=== PATIENT | female | born 1975 | race African-American/Black ===

== ENCOUNTER 2018-01-17 13:42 | Inpatient (IN) | payer OTHER ==
[2018-01-17 14:51] VITALS: BMI 22.6
--- NOTE | 2018-01-17 17:31 | HP ---
"Admission ROS [facility] Chief Complaint: My alcohol was discontinued and I am here for rehab. Allergies/Adverse Reactions: Allergies Allergy/AdvReac Type Severity Reaction Status Date / Time No Known Allergies Allergy Verified 01/17/18 15:29 History of Present Illness: Hx alcohol use since age 39. Detoxed during hospitalization at [facility]. Denies other substances. States was detoxed in [facility] in September but only remained sober for 2-3 days. Sent from [facility] ([facility]) to [facility] for rehab. Patient was admitted post seizures and treated for alcohol withdrawal symptoms w/ Librium, thiamine, folate, and MVI at [facility] from 01/13 to 01/17/15. Patient was also treated w/ 5 day course of antibiotics while hospitalized for possible pneumonia. Discharge diagnoses: Increased LDH (R74.0); Hypokalemia (E87.6) Other pancytopenia ( D61.818); Nonspecific abnormal finding of lung field (R91.8) alcohol abuse and withdrawal. Verbal report from USHA Sosa indicates that except for vitamins , no other medications needed at discharge. Denies significant PMH/PSH. Search Terms: Yvette Bone, 1975 Search Date: 01/17/2018 06:12:36 PM The Drug Utilization Report below displays all of the controlled substance prescriptions, if any, that your patient has filled in the last twelve months. The information displayed on this report is compiled from pharmacy submissions to the Department, and accurately reflects the information as submitted by the pharmacies. This report was requested by: Jaimie Person | Reference #: [id number] There are no results for the search terms that you entered. Exam Limitations: No Limitations - Ebola screening Have you traveled outside of the country in the last 21 days: No Have you had contact with anyone from an Ebola affected area: No Have you been sick,other than usual withdrawal symptoms: No - Review of Systems Constitutional: Changes in sleep (Difficulty falling asleep and staying asleep.) EENT: reports: No Symptoms Reported Respiratory: reports: No Symptoms reported, Other (Had SOB and weakness but reslved now.) Cardiac: reports: No Symptoms Reported GI: reports: No Symptoms Reported : reports: No Symptoms Reported Musculoskeletal: reports: No Symptoms Reported Integumentary: reports: Dryness (Dry, itchy skin.) Neuro: reports: No Symptoms reported, Seizure (Last seizure 01/12/18 - then sent to ER) Endocrine: reports: No Symptoms Reported Hematology: reports: No Symptoms Reported Psychiatric: reports: Judgement Intact, Orientated x3, Agitated, Anxious, Depressed (Denies thoughts of harming self and others.) Patient History - Patient Medical History Hx Asthma: No Hx Chronic Obstructive Pulmonary Disease (COPD): No Hx Cardiac Disorders: No Hx Hypertension: Yes Hx Seizures: Yes (LAST SEIZURE WAS ON 01/14/2018) Hx Diabetes: No Hx Gastrointestinal Disorders: No Hx Genitourinary Disorders: No Hx Sexually Transmitted Disorders: No (Denies) Hx Renal Disease (ESRD): No Hx Human Immunodeficiency Virus (HIV): No (Negative - 2017) Hx Hepatitis C: No (Hep C AB negative 01/15/18 ) Hx Depression: Yes (Denies thoughts of harming self or others) Hx Suicide Attempt: No Hx Schizophrenia: No - Patient Surgical History Past Surgical History: No Hx Neurologic Surgery: No Hx Cataract Extraction: No Hx Cardiac Surgery: No Hx Lung Surgery: No Hx Breast Surgery: No Hx Breast Biopsy: No Hx Abdominal Surgery: No Hx Appendectomy: No Hx Cholecystectomy: No Hx Genitourinary Surgery: No Hx Section: No Hx Orthopedic Surgery: No Anesthesia Reaction: No - PPD History Previous Implant?: Yes Documented Results: Negative w/o proof Implanted On Prior [facility] Admission?: No PPD to be Administered?: Yes - Reproductive History Patient : No (Urine HCG U negative 12/2617 @ [facility]) - Smoking Cessation Smoking history: Former smoker Have you smoked in the past 12 months: No Cigars Per Day: 0 Hx Chewing Tobacco Use: No Initiated information on smoking cessation: No - Substance & Tx. History Hx Alcohol Use: Yes Hx Substance Use: Yes Substance Use Type: Alcohol Hx Substance Use Treatment: Yes ([facility] detox) - Substances Abused Alcohol Route: Oral Frequency: Daily Amount used: 1 PINT OF VODKA AND 1-3 25 OZ CANS OF BEER Age of first use: 39 Date of Last Use: 01/12/18 Admission Physical Exam [facility] - Vital Signs Vital Signs: Vital Signs - 24 hr 01/17/18 14:48 Temperature 98.4 F Pulse Rate 70 Respiratory 18 Rate Blood Pressure 137/90 - Physical General Appearance: Yes: Nourished, Appropriately Dressed, Tremorous, Anxious HEENTM: Yes: Hearing grossly Normal, JEFFERY, Other (Speech is slow and hesitant. Bilateral nystagmus on lateral gaze.) Respiratory: Yes: Chest Non-Tender, Lungs Clear, Normal Breath Sounds, No Respiratory Distress Neck: Yes: No masses,lesions,Nodules, Supple Breast: Yes: Breast Exam Deferred Cardiology: Yes: Regular Rhythm, Regular Rate, S1, S2 Abdominal: Yes: Normal Bowel Sounds, Non Tender, Soft, Protuberent (Abd girth = 37.5 inches at umbilicus.) Genitourinary: Yes: Within Normal Limits Back: Yes: Normal Inspection Musculoskeletal: Yes: full range of Motion, Gait Steady Extremities: Yes: Normal Capillary Refill, Normal Range of Motion, Non-Tender, Tremors (mild tremors noted on arms extended) Neurological: Yes: Fully Oriented, Alert, Motor Strength 5/5, Normal Mood/Affect , Normal Response, Other (Bilateral nystagmus on lateral gaze.) Integumentary: Yes: Normal Color, Dry (Dry skin with decreased skin turgor.), Warm Lymphatic: Yes: Within Normal Limits - Diagnostic (1) Alcohol dependence in remission Current Visit: Yes Status: Acute (2) Nystagmus Current Visit: Yes Status: Acute (3) Dry skin Current Visit: Yes Status: Chronic Cleared for Admission [facility] - Detox or Rehab Claeared for Rehab Admission: Yes [facility] Breath Alcohol Content Breath Alcohol Content: 0 Urine Pregancy Test - Result Urine Test Results: Negative- NO Line Present Urine Drug Screen - Results Drug Screen Negative: No Urine Drug Screen Results: BZO-Benzodiazepines Inpatient Rehab Admission - Initial Determination Are CD services needed?: Yes Free of communicable disease: Yes Not in need of hospitalization: Yes - Rehab Admission Criteria Previous failed treatment: Yes Poor recovery environment: Yes Comorbidities: Yes Lacks judgement: No Patient is meeting Inpatient Rehab admission criteria:: Yes"
[2018-01-17] MEDS ORDERED: LOPERAMIDE HCL 2 MG CAPSULE PO PRN (18:13)
[2018-01-17] MEDS ORDERED: guaiFENesin/D-METHORPHAN HB 10 ML UNIT-DOSE CUPS PO PRN (18:13)
[2018-01-17] MEDS ORDERED: MAGNESIUM HYDROX 2400MG/30ML ORAL SUSPENSION 30 ML CUP PO PRN (18:13)
[2018-01-17] MEDS ORDERED: IBUPROFEN 400 MG TABLET (FP) PO PRN (18:13)
[2018-01-17] MEDS ORDERED: MAG HYDROX/AL HYDROX/SIMETH 30 ML UNIT-DOSE CUP PO PRN (18:13)
[2018-01-17] MEDS ORDERED: MENTHOL/PHENOL 1 EACH UD MM PRN (18:13)
[2018-01-17] MEDS ORDERED: P-EPHED 60MG/TRIPROLIDI 2.5MG TABLET PO PRN (18:13)
[2018-01-17] MEDS ORDERED: MAGNESIUM CITRATE 300 ML BOTTLE PO PRN (18:13)
[2018-01-17] MEDS ORDERED: ACETAMINOPHEN 325 MG TABLET (FP) PO PRN (18:13)
[2018-01-17] MEDS ORDERED: COLLOIDAL OATMEAL 1 BAR EACH TP PRN (18:15)
[2018-01-17] MEDS ORDERED: TUBERCULIN PPD 5 TU/0.1ML VIAL ID ONE (20:37)
[2018-01-17] MEDS: THIAMINE HCL 100 MG TABLET (FP) PO SCH (21:25)
[2018-01-17] MEDS: hydrOXYzine PAMOATE 50 MG CAPSULE (FP) PO PRN (21:25)
[2018-01-17] MEDS ORDERED: MELATONIN 5 MG TABLETS PO PRN (22:00)
[2018-01-17 22:16] LABS: URINE APPEARANCE CLEAR; URINE BILIRUBIN NEGATIVE (<2.0 mg/dL); URINE COLOR LTYELLOW; URINE GLUCOSE (UA) NEGATIVE (NEGATIVE); URINE KETONE NEGATIVE (NEGATIVE); URINE NITRITE NEGATIVE (NEGATIVE); URINE PROTEIN NEGATIVE (NEGATIVE); URINE UROBILINOGEN NEGATIVE mg/dL (0.2-1.0)
[2018-01-17 22:21] LABS: URINE LEUK ESTERASE 1+ (NEGATIVE)
[2018-01-17 22:41] LABS: EPI CELLS FEW /HPF (FEW); URINE BACTERIA RARE /hpf (NONE SEEN)
[2018-01-18] MEDS: PRENATAL VITAMINS W/ FOLIC ACID TABLET (FP) PO SCH (09:31)
[2018-01-18] MEDS: hydrOXYzine PAMOATE 50 MG CAPSULE (FP) PO PRN ×2 (10:54→19:42)
--- NOTE | 2018-01-18 11:21 | HP ---
Psychiatrist Admission - Data Date of interview: 01/18/18 Admission source: [facility] Identifying data: First admission to [address] for this 42 y/o AA female seeking rehabilitation treatment for alcohol dependence.No prior contact with [facility].Patient is single,a mother of four,domiciled,unemployed and supported on food stamps. Medical History: Patient endorses good general health.According to records, the patient was hospitalized at [facility] (01/13 - 01/17/18) for seizures + alcohol withdrawal. Treated for pneumonia as well.Discharged on and referred to [facility] for rehabilitation.NO indication of utilization of antipsychotic medications during retention at [facility]. Ms Bone has consistently denied prior exposure to psychotropic medications.Current labs are remarkable for hyperammonemia (77.09) and elevated transaminase AST = 72 ( range 15 - 37). Psychiatric History: Patient denies history of psychiatric hospitalizations or suicide attempts.Ms Bone reports transient episodes of dysphoria, usually after alcohol use but she denies previous exposure to psychotropic medications.No contact with outpatient psychiatric care providers. Physical/Sexual Abuse/Trauma History: Patient denies. Additional Comment: Discussed with the patient in this session.Ms Bone aknowledges consuming 1-2 pints of vodka + beer (3 x 25 ounces) on a daily basis for past three years. See details in current [facility] report : Smoking history : Former smoker. Have you smoked in the past 12 months: No. Cigars Per Day: 0. Hx Chewing Tobacco Use: No. Initiated information on smoking cessation: No. - Substance & Tx. History. Hx Alcohol Use: Yes. Hx Substance Use: Yes. Substance Use Type: Alcohol. Hx Substance Use Treatment: Yes ([facility] detox). - Substances Abused. Alcohol. Route: Oral. Frequency: Daily. Amount used: 1 PINT OF VODKA AND 1-3 25 OZ CANS OF BEER. Age of first use: 39. Date of Last Use: 01/12/18. Urine Drug Screen Results: BZO- Benzodiazepines.Noted on admission. Vital Signs: Vital Signs - 24 hr 01/17/18 01/18/18 01/18/18 14:48 00:30 03:30 Temperature 98.4 F Pulse Rate 70 Respiratory 18 17 18 Rate Blood Pressure 137/90 01/18/18 07:26 Temperature 97.7 F Pulse Rate 76 Respiratory 18 Rate Blood Pressure 128/82 Allergies/Adverse Reactions: Allergies Allergy/AdvReac Type Severity Reaction Status Date / Time No Known Allergies Allergy Verified 01/17/18 15:29 - Substance Abuse/Tx History Hx Alcohol Use: Yes (1-2 pints daily since 2014) Hx Substance Use: Yes (alcohol) Substance Use Type: Alcohol Hx Substance Use Treatment: Yes Mental Status Exam - Mental Status Exam Alert and Oriented to: Time, Place, Person Cognitive Function: Good Patient Appearance: Well Groomed Mood: Nervous, Hopeful Affect: Mood Congruent Patient Behavior: Fatigued, Cooperative Speech Pattern: Clear, Appropriate Voice Loudness: Normal Thought Process: Intact, Goal Oriented Thought Disorder: Not Present Hallucinations: Denies Suicidal Ideation: Denies Homicidal Ideation: Denies Insight/Judgement: Fair Sleep: Poorly, Difficulty falling asleep (wants benadryl) Appetite: Good Muscle strength/Tone: Normal Gait/Station: Normal Psychiatric Findings - Problem List ([place] 1, 2,3) (1) Alcohol dependence in remission Current Visit: Yes Status: Acute (2) Insomnia Current Visit: Yes Status: Acute - Initial Treatment Plan Initial Treatment Plan: Psychoeducation.Principles of sleep hygiene discussed in session.Support.Patient is encouraged to participate in daily groups + scheduled activities occurring on the unit.Psychiatric re-assessment will follow , during hospital course, to screen for depression and determine necessity for antidepressant medications.Insomnia is addressed with benadryl 50 mg po hs prn ( at patient's request).Ms Bone is in agreement with this plan of care.Observation.
[2018-01-18 11:35] LABS: HEMATOCRIT 34.8 % (32.4-45.2); HEMOGLOBIN 11.1 GM/dL (10.7-15.3); MCH 26.6 pg (25.7-33.7); MCHC 31.8 g/dl (32.0-36.0); MEAN CELL VOLUME 83.7 fl (80-96); MEAN PLT VOLUME 9.5 fl (7.5-11.1); PLATELET COUNT 133 K/MM3 (134-434); RBC 4.16 M/mm3 (3.60-5.2); RDW 20.6 % (11.6-15.6); WHITE BLOOD COUNT 3.6 K/mm3 (4.0-10.0)
[2018-01-18 11:45] LABS: ALBUMIN 3.9 g/dl (3.4-5.0); ALK PHOS 94 U/L (45-117); ANION GAP 9 MMOL/L (8-16); BILIRUBIN,TOTAL 0.4 mg/dL (0.2-1); BLOOD UREA NITROGEN 8 mg/dL (7-18); CALCIUM 9.8 mg/dL (8.5-10.1); CHLORIDE 102 mmol/L (98-107); CO2 27 mmol/L (21-32); CREATININE 0.5 mg/dL (0.55-1.3); GLUCOSE,RANDOM 102 mg/dL (74-106); POTASSIUM 4.5 mmol/L (3.5-5.1); SGOT/AST 72 U/L (15-37); SGPT/ALT 39 U/L (13-61); SODIUM 138 mmol/L (136-145)
--- NOTE | 2018-01-18 15:29 | PN ---
[facility] Progress Note Note: Patient admitted from [facility] yesterday for alcohol rehabilitation, ammonia level drawn today is 77.1 No known h/o elevated ammonia levels in the past, patient denies history. On exam, she is A&Ox3, no focal neurological deficits. Will defer treatment in the absence of symptoms and repeat level on 01/20. Staff instructed to monitor and report new findings to provider salesperson men's hats. d/w nursing.
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
[2018-01-18] MEDS: THIAMINE HCL 100 MG TABLET (FP) PO SCH (21:27)
[2018-01-18] MEDS: diphenhydrAMINE HCL 25 MG CAPSULE (FP) PO PRN (21:28)
--- NOTE | 2018-01-18 23:25 | EKG ---
Test Reason : Blood Pressure : / mmHG Vent. Rate : 074 BPM Atrial Rate : 074 BPM P-R Int : 144 ms QRS Dur : 080 ms QT Int : 382 ms P-R-T Axes : 042 053 042 degrees QTc Int : 424 ms NORMAL SINUS RHYTHM NORMAL ECG NO PREVIOUS ECGS AVAILABLE Confirmed by HANH COREAS MD ([id number]) on 01/18/2018 11:24:34 PM Referred By: Confirmed By:HANH COREAS MD
[2018-01-19] MEDS: hydrOXYzine PAMOATE 50 MG CAPSULE (FP) PO PRN ×2 (09:34→21:15)
[2018-01-19] MEDS: PRENATAL VITAMINS W/ FOLIC ACID TABLET (FP) PO SCH (09:34)
--- NOTE | 2018-01-19 15:29 | PN ---
[facility] Progress Note Note: Psychiatry Attending's on-call note : Progress notes (nursing) are reviewed. Case discussed, via telephone, with nurse on duty. No report of acting out behavior. Improved social interaction. Patient described as alert + fully oriented. Ms Lizandro is reported as adjusting to the milieu. No further indication for neuro checks every 1/2 hour. Order is discontinued. Maintain close observation. Will follow.
[2018-01-19] MEDS: THIAMINE HCL 100 MG TABLET (FP) PO SCH (21:15)
--- NOTE | 2018-01-20 09:37 | PN ---
[facility] Progress Note Note: Pt had ammonia level drawn this morning due to elevated ammonia level on admission lab. Results pending. Pt is alert o x 3. No evidence of confusion or disorientation. Impression:Asymptomatic Plan: increase po fluids monitor pt for symptoms Lactulose if needed.
[2018-01-20] MEDS: PRENATAL VITAMINS W/ FOLIC ACID TABLET (FP) PO SCH (09:51)
[2018-01-20] MEDS: hydrOXYzine PAMOATE 50 MG CAPSULE (FP) PO PRN (09:51)
--- NOTE | 2018-01-20 13:28 | PN ---
[facility] Progress Note Note: Vital Signs Temperature 97.7 F 01/20/18 06:40 Pulse Rate 78 01/20/18 06:40 Respiratory Rate 16 01/20/18 06:40 Blood Pressure 128/95 01/20/18 06:40 O2 Sat by Pulse Oximetry (%) Laboratory Last Values WBC 3.6 K/mm3 (4.0-10.0) L 01/18/18 07:40 RBC 4.16 M/mm3 (3.60-5.2) 01/18/18 07:40 Hgb 11.1 GM/dL (10.7-15.3) 01/18/18 07:40 Hct 34.8 % (32.4-45.2) 01/18/18 07:40 MCV 83.7 fl (80-96) 01/18/18 07:40 MCH 26.6 pg (25.7-33.7) 01/18/18 07:40 MCHC 31.8 g/dl (32.0-36.0) L 01/18/18 07:40 RDW 20.6 % (11.6-15.6) H 01/18/18 07:40 Plt Count 133 K/MM3 (134-434) L 01/18/18 07:40 MPV 9.5 fl (7.5-11.1) 01/18/18 07:40 Sodium 138 mmol/L (136-145) 01/18/18 07:40 Potassium 4.5 mmol/L (3.5-5.1) 01/18/18 07:40 Chloride 102 mmol/L (98-107) 01/18/18 07:40 Carbon Dioxide 27 mmol/L (21-32) 01/18/18 07:40 Anion Gap 9 MMOL/L (8-16) 01/18/18 07:40 BUN 8 mg/dL (7-18) 01/18/18 07:40 Creatinine 0.5 mg/dL (0.55-1.3) L 01/18/18 07:40 Creat Clearance w eGFR > 60 (>60) 01/18/18 07:40 Random Glucose 102 mg/dL (74-106) 01/18/18 07:40 Calcium 9.8 mg/dL (8.5-10.1) 01/18/18 07:40 Total Bilirubin 0.4 mg/dL (0.2-1) 01/18/18 07:40 AST 72 U/L (15-37) H 01/18/18 07:40 ALT 39 U/L (13-61) 01/18/18 07:40 Alkaline Phosphatase 94 U/L (45-117) 01/18/18 07:40 Ammonia 50.08 umol/L (11-32) H 01/20/18 07:00 Total Protein 8.0 g/dl (6.4-8.2) 01/18/18 07:40 Albumin 3.9 g/dl (3.4-5.0) 01/18/18 07:40 Urine Color Ltyellow 01/17/18 20:32 Urine Appearance Clear 01/17/18 20:32 Urine pH 6.0 (5.0-8.0) 01/17/18 20:32 Ur Specific [place] 1.008 (1.001-1.035) 01/17/18 20:32 Urine Protein Negative (NEGATIVE) 01/17/18 20:32 Urine Glucose (UA) Negative (NEGATIVE) 01/17/18 20:32 Urine Ketones Negative (NEGATIVE) 01/17/18 20:32 Urine Blood Negative (NEGATIVE) 01/17/18 20:32 Urine Nitrite Negative (NEGATIVE) 01/17/18 20:32 Urine Bilirubin Negative (<2.0 mg/dL) 01/17/18 20:32 Urine Urobilinogen Negative mg/dL (0.2-1.0) 01/17/18 20:32 Ur Leukocyte Esterase 1+ (NEGATIVE) H 01/17/18 20:32 Urine WBC (Auto) 3 /hpf (3-5) 01/17/18 20:32 Urine RBC (Auto) None /hpf (0-3) 01/17/18 20:32 Ur Epithelial Cells Few /HPF (FEW) 01/17/18 20:32 Urine Bacteria Rare /hpf (NONE SEEN) 01/17/18 20:32 RPR Titer Nonreactive (NONREACTIVE) 01/18/18 07:40 ammonia levels improve from 01/18/18 = 77.09 to 01/20/18 50.18 Patient asymptomatic start lactulose TID repeat ammonia in 48 hours increase PO fluids continue to monitor
[2018-01-20] MEDS: LACTULOSE 20 GM/30 ML UDC (FOR ORAL USE ONLY) PO SCH ×2 (14:40→21:33)
[2018-01-20] MEDS: THIAMINE HCL 100 MG TABLET (FP) PO SCH (21:33)
[2018-01-20] MEDS: diphenhydrAMINE HCL 25 MG CAPSULE (FP) PO PRN (21:33)
[2018-01-21] MEDS: LACTULOSE 20 GM/30 ML UDC (FOR ORAL USE ONLY) PO SCH ×3 (06:24→21:23)
[2018-01-21] MEDS: hydrOXYzine PAMOATE 50 MG CAPSULE (FP) PO PRN (10:16)
[2018-01-21] MEDS: PRENATAL VITAMINS W/ FOLIC ACID TABLET (FP) PO SCH (10:16)
[2018-01-21] MEDS: THIAMINE HCL 100 MG TABLET (FP) PO SCH (21:23)
[2018-01-21] MEDS: diphenhydrAMINE HCL 25 MG CAPSULE (FP) PO PRN (21:23)
[2018-01-22] MEDS: hydrOXYzine PAMOATE 50 MG CAPSULE (FP) PO PRN (06:20)
[2018-01-22] MEDS: LACTULOSE 20 GM/30 ML UDC (FOR ORAL USE ONLY) PO SCH (06:48)
[2018-01-22 06:56] VITALS: BP 134/84; PULSE 71; TEMP 98.6
[2018-01-22] MEDS: PRENATAL VITAMINS W/ FOLIC ACID TABLET (FP) PO SCH (09:43)
--- NOTE | 2018-01-22 12:25 | PN ---
Psychiatric Progress Note Vital Signs: Vital Signs Period Temp Pulse Resp BP Sys/Gardiner Pulse Ox Last 24 Hr 98.6 F 71 18-18 134/84 Date of Session: 01/22/18 Chief Complaint:: Discharge Note HPI: Patient addressing Alcohol Dependence comorbid with Alcohol-Induced Sleep Disorder ROS: Alcohol withdrawal seizure, recent treatment for pneumonia Current Medications: Active Medications Generic Name Dose Route Start Last Admin Trade Name Freq PRN Reason Stop Dose Admin Al Hydroxide/Mg Hydroxide 30 ml 01/17/18 18:13 Mylanta Oral Suspension - PO Q6H PRN DYSPEPSIA Colloidal Oatmeal 1 applic 01/17/18 18:15 01/18/18 10:54 Aveeno Soap - TP 1 applic DAILY PRN Administration HYGEINE Diphenhydramine HCl 50 mg 01/18/18 22:00 01/21/18 21:23 Benadryl - PO 50 mg HS PRN Administration INSOMNIA Eucalyptus/Menthol/Phenol/Sorbitol 1 each 01/17/18 18:13 Cepastat Lozenge - MM Q4H PRN SORE THROAT Guaifenesin 10 ml 01/17/18 18:13 Robitussin Dm - PO Q6H PRN COUGH Hydroxyzine Pamoate 50 mg 01/17/18 18:13 01/22/18 06:20 Vistaril - PO 50 mg Q4H PRN Administration AGITATION Ibuprofen 400 mg 01/17/18 18:13 Motrin - PO Q6H PRN Pain level 4-6 Lactulose 20 gm 01/20/18 14:00 01/22/18 06:48 Cephulac (Oral Use) PO 20 gm TID ROBERT Administration Loperamide HCl 4 mg 01/17/18 18:13 Imodium - PO Q6H PRN DIARRHEA Magnesium Citrate 300 ml 01/17/18 18:13 Citroma - PO Q48H PRN CONSTIPATION Magnesium Hydroxide 30 ml 01/17/18 18:13 Milk Of Magnesia - PO DAILY PRN CONSTIPATION Multivit/Folic Acid/Iron 1 tab 01/18/18 10:00 01/22/18 09:43 Vitamins (Sjr) - PO 1 tab DAILY ROBERT Administration Pseudoephedrine/Triprolidine 1 combo 01/17/18 18:13 Actifed - PO TID PRN NASAL CONGESTION Thiamine HCl 100 mg 01/17/18 22:00 01/21/18 21:23 Vitamin B1 - PO 100 mg HS ROBERT Administration Current Side Effect: No Lab tests ordered: Yes Lab tests reviewed: Yes Provider note:: Patient has completed this program today. She has partially met her treatment goals and will continue to address her issues in outpatient treatment at [facility]. Told director underwriter sales that from her participation in this program, she has learned the importance to make meetings and have a sponsor. She is stable for discharge today Total face to face time:: 35 Mental Status Exam - Mental Status Exam Alert and Oriented to: Time, Place, Person Cognitive Function: Fair Patient Appearance: Well Groomed Mood: Hopeful, Euthymic Affect: Appropriate Patient Behavior: Cooperative Speech Pattern: Clear Voice Loudness: Normal Thought Process: Intact, Goal Oriented Thought Disorder: Not Present Hallucinations: Denies Suicidal Ideation: Denies Homicidal Ideation: Denies Insight/Judgement: Fair Sleep: Fair Appetite: Good Muscle strength/Tone: Normal Gait/Station: Normal Psychiatric Treatment Plan - Problem List (1) Alcohol dependence Current Visit: Yes (2) Alcohol-induced sleep disorder Current Visit: Yes (3) Alcohol related seizure Current Visit: Yes Initial treatment plan: Patient is discharged today and referred to [facility] for outpatient treatment
--- NOTE | 2018-01-22 12:52 | PN ---
Psychiatric Progress Note Vital Signs: Vital Signs Period Temp Pulse Resp BP Sys/Gardiner Pulse Ox Last 24 Hr 98.6 F 71 18-18 134/84 Date of Session: 01/22/18 Chief Complaint:: Discharge Note HPI: Patient addressing Cocaine and Cannabis Dependence comorbid with Nicotine Dependence and Substance-Induced Mood Disoeder ROS: H/O TB Current Medications: Active Medications Generic Name Dose Route Start Last Admin Trade Name Freq PRN Reason Stop Dose Admin Al Hydroxide/Mg Hydroxide 30 ml 01/17/18 18:13 Mylanta Oral Suspension - PO Q6H PRN DYSPEPSIA Colloidal Oatmeal 1 applic 01/17/18 18:15 01/18/18 10:54 Aveeno Soap - TP 1 applic DAILY PRN Administration HYGEINE Diphenhydramine HCl 50 mg 01/18/18 22:00 01/21/18 21:23 Benadryl - PO 50 mg HS PRN Administration INSOMNIA Eucalyptus/Menthol/Phenol/Sorbitol 1 each 01/17/18 18:13 Cepastat Lozenge - MM Q4H PRN SORE THROAT Guaifenesin 10 ml 01/17/18 18:13 Robitussin Dm - PO Q6H PRN COUGH Hydroxyzine Pamoate 50 mg 01/17/18 18:13 01/22/18 06:20 Vistaril - PO 50 mg Q4H PRN Administration AGITATION Ibuprofen 400 mg 01/17/18 18:13 Motrin - PO Q6H PRN Pain level 4-6 Lactulose 20 gm 01/20/18 14:00 01/22/18 06:48 Cephulac (Oral Use) PO 20 gm TID ROBERT Administration Loperamide HCl 4 mg 01/17/18 18:13 Imodium - PO Q6H PRN DIARRHEA Magnesium Citrate 300 ml 01/17/18 18:13 Citroma - PO Q48H PRN CONSTIPATION Magnesium Hydroxide 30 ml 01/17/18 18:13 Milk Of Magnesia - PO DAILY PRN CONSTIPATION Multivit/Folic Acid/Iron 1 tab 01/18/18 10:00 01/22/18 09:43 Vitamins (Sjr) - PO 1 tab DAILY ROBERT Administration Pseudoephedrine/Triprolidine 1 combo 01/17/18 18:13 Actifed - PO TID PRN NASAL CONGESTION Thiamine HCl 100 mg 01/17/18 22:00 01/21/18 21:23 Vitamin B1 - PO 100 mg HS ROBERT Administration Current Side Effect: No Lab tests ordered: Yes Lab tests reviewed: Yes Provider note:: Patient will complete this program on 01/23/18. He has met her treatment goals and will continue to address his issues in outpatient treatment at [facility]. Total face to face time:: 35 Psychiatric Treatment Plan - Problem List (1) Alcohol dependence Current Visit: Yes (2) Alcohol-induced sleep disorder Current Visit: Yes (3) Alcohol related seizure Current Visit: Yes
== END 2018-01-22 12:35 | disposition home or self-care (01) | DRG 58 ==
LOC: YASAS 13:42 → Y3E 15:23 → Y3W 01-20 18:13 → Y3E 01-20 18:13 → Y3W 01-20 18:14
PROVIDERS: ADMIT Psychiatry & Neurology Psychiatry; ATTEND Psychiatry & Neurology Psychiatry
PROC: HZ42ZZZ Group Counseling for Substance Abuse Treatment, Cognitive-Behavioral (ICD-10-PCS; principal; 2018-01-17)
DX: F10.282 Alcohol dependence with alcohol-induced sleep disorder (principal); E72.20 Disorder of urea cycle metabolism, unspecified; G47.00 Insomnia, unspecified; L98.8 Other specified disorders of the skin and subcutaneous tissue; H55.09 Other forms of nystagmus; Z86.69 Personal history of other diseases of the nervous system and sense organs; Z87.891 Personal history of nicotine dependence; Y04.0XXA Assault by unarmed brawl or fight, initial encounter; Y93.89 Activity, other specified; Y92.239 Unspecified place in hospital as the place of occurrence of the external cause
CPT/HCPCS: 36415; 80053; 81003; 81015; 82140; 85027; 86593; 93005; 93010